=== PATIENT | male | born 1990 | race Caucasian/White ===

== ENCOUNTER 2021-08-05 12:11 | Outpatient (REF) | payer MEDICAID, SELFPAY ==
--- NOTE | ~2021-08-05 | XR_ITS ---
EXAMINATION: XR SHOULDER, LEFT CLINICAL INFORMATION: Pain COMPARISON: Previous x-ray from 2012 TECHNIQUE: 3 views of the left shoulder. FINDINGS: Bone alignment is normal. No fracture or dislocation is seen. There is a small sclerotic density in the left humeral head that is stable and probably represents a benign bone island. The joint spaces are normal. Soft tissues are normal. XR/XR shoulder LT min 2V IMPRESSION: Unremarkable exam.
== END 2021-08-05 12:12 | disposition home or self-care (01) ==
LOC: HO.HOSX 12:11
PROVIDERS: Visit Provider Orthopaedic Surgery
DX: M25.512 Pain in left shoulder (principal)
CPT/HCPCS: 73030

== ENCOUNTER 2021-08-21 12:45 | Outpatient (REF) | payer OTHER, MEDICAID, SELFPAY ==
--- NOTE | ~2021-08-21 | MR_ITS ---
EXAMINATION: MR SHOULDER WITH CONTRAST, LEFT CLINICAL INFORMATION: Left shoulder pain. Multiple dislocations. Injury on 07/26/2021. Surgery 14 years ago. Instability. COMPARISON: Left shoulder fluoroscopic arthrography done earlier the same day. Left shoulder radiographs dated 08/05/2021. Left shoulder MRI dated 11/10/2011. TECHNIQUE: MRI of the shoulder was performed following the intra-articular administration of a dilute gadolinium-containing solution (arthrogram) on a high-field scanner. FINDINGS: ROTATOR CUFF: Mild supraspinatus and infraspinatus tendinosis. No measurable rotator cuff tendon tear. Mild degenerative cystic change in the posterior aspect of the greater tuberosity. No muscle atrophy or fatty infiltration. BICEPS: Normal CORACOACROMIAL ARCH: The undersurface of the acromion is flat with no subacromial spur. The acromioclavicular joint is normal. LABRUM/CAPSULE: Postsurgical change consistent with prior labral repair. Contrast extending to the base of the anterior and anterior inferior labrum, consistent with nondisplaced labral tearing. Findings are slightly increased in prominence when compared to the MRI dated 11/10/2011. Intact inferior joint capsule. GLENOHUMERAL JOINT/MARROW: Glenohumeral articular cartilage thinning and signal heterogeneity with tiny marginal osteophytes. MR/MR shoulder LT w con IMPRESSION: 1. Contrast extending to the base of the anterior and anteroinferior labrum consistent with nondisplaced labral tearing, slightly increased in prominence when compared to the prior MRI. Post surgical changes consistent prior labral repair. 2. Mild supraspinatus and infraspinatus tendinosis without a measurable tendon tear. 3. Mild glenohumeral arthrosis, slightly progressed.
--- NOTE | ~2021-08-21 | FL_ITS ---
EXAMINATION: XR ARTHROGRAM SHOULDER, LEFT CLINICAL INFORMATION: Left shoulder pain. COMPARISON: Left shoulder 08/05/2021. TECHNIQUE: Following explaining fluoroscopy-guided left shoulder injection for MRI procedure, benefits and risks, a written consent was obtained. Patient was placed supine on fluoroscopy table and anterior aspect of the shoulder was cleaned and draped in usual sterile manner. 1% lidocaine was injected at puncture site. A 22-gauge spinal needle was then inserted from the skin into the shoulder joint space. 2 mL of non-iodinated contrast was injected and single image was obtained. Subsequently 0.1 mL of gadolinium diluted with 10 mL of saline and 1% lidocaine combination was injected and needle withdrawn. Complete hemostasis achieved at puncture site. Simple Band-Aid applied postprocedure. Patient tolerated procedure extremely well. FINDINGS: Single image obtained through the left shoulder reveals contrast opacifying the left shoulder joint space. FLUOROSCOPY TIME: 1.5 minutes. DOSE AREA PRODUCT: 5.123 uGy-m2 (microgray-meter squared) FL/FL arthrogram shoulder LT IMPRESSION: Successful fluoroscopy-guided left shoulder injection of diluted gadolinium. Patient was sent to MRI for further imaging.
== END 2021-08-21 12:46 | disposition home or self-care (01) ==
LOC: HO.XRAY 12:45
PROVIDERS: Visit Provider Physician Assistant
DX: M25.312 Other instability, left shoulder (principal)
CPT/HCPCS: 23350; 73040; 73222; A9585

== ENCOUNTER 2021-10-02 06:53 | Day surgery (SDC) | payer OTHER, SELFPAY ==
[2021-09-26 09:45] VITALS: BMI 25.4
[2021-10-02] VITALS (10 sets, daily range): BP systolic 107–133; BP diastolic 60–77; PULSE 62–89; RESP 15–18; TEMP 36.1–36.3; O2SAT 93–98
--- NOTE | 2021-10-02 07:38 | MHC.SHP ---
Pre-Procedural Eval Section A Date of Service: 10/02/21 The patient is an INPATIENT: No Changes since office visit: Yes Patient answered all questions; No Cold of Flu in the past 2 weeks, No New Medical Problems and No Changes in Medication The History & Physical has been completed within 30 days and I have reviewed it.: Yes Section B Chief Complaint: shoulder instability Allergies: Allergies Allergy/AdvReac Type Severity Reaction Status Date / Time No Known Allergies Allergy Verified 10/02/21 07:06 [No Known Allergies*] Plan I have reviewed the history and physical and performed a pertinent physical examination on my patient. No changes have occurred unless specified.
[2021-10-02] MEDS: Lactated Ringers 1,000 ML 50 ML IVCONT (07:56)
--- NOTE | 2021-10-02 07:59 | HO.ANESPROP2 ---
HPI - Anesthesia Eval Consult details Narrative: 31 M for left shoulder arthroscopy PMFSH Active Problems Active Problems: All Active Problems (Updated 09/26/21 @ 09:45 by Seda Laurent RN) Instability of left shoulder joint (Acute) Past Medical History Medical History Acute anxiety Bankart lesion of left shoulder Habitual snoring Large tonsils Mild heartburn Family History Family history of problems with anesthesia: No Surgical History Surgical History H/O arthroscopy of shoulder Hx of shoulder surgery History of Problems with Anesthesia: No Social History Social History (Updated 08/05/21 @ 13:29 by DOMINIC Robert) Are you a primary home care manager rn to a significant other at home: No Do you presently have visiting nurse or other home services: No Tobacco use type: Smokeless Tobacco Current occupational status: employed Current occupation: [employer] service, rt hand Meds Allergies Allergy/AdvReac Type Severity Reaction Status Date / Time No Known Allergies Allergy Verified 10/02/21 07:06 [No Known Allergies*] Active Medications: Current Medications Lactated Ringer's (Lr) 1,000 mls @ 50 mls/hr IVCONT .Q20H SILVIANO Last Admin: 10/02/21 07:56 Dose: 50 mls/hr Exam Exam Date and Time: October 02, 2021 0759 Height,Weight and Vital Signs: Height 5 ft 10 in Weight 80.286 kg Last Vital Signs Temp 97.0 F 10/02/21 07:22 Pulse 71 10/02/21 07:22 Resp 15 10/02/21 07:22 BP 133/77 10/02/21 07:22 Pulse Ox 97 10/02/21 07:22 O2 Del Method 10/02/21 07:22 Airway Mallampati Class: III TM Dist: >3cm Neck ROM: Full Loose/Missing/Broken Teeth: Yes Heart: S1,S2 Lungs: b/l breath sounds Assessment and Plan Assessment Anesthesia Assessment: Anesthesia Plan Discussed and Chart Reviewed Final Anesthetic Review Family History of Problems with Anesthesia: No History of Problems with Anesthesia: No NPO: Yes ASA Class: II Final Preanesthetic Review: Meds/Allgs Chart Reviewed, Consent Obtained/Reviewed and Anes Risks/Benef Reviewed Patient Risk: Intermediate Procedure Risk: Intermediate Anesthetic Plan Anesthetic Plan: GA and Regional Block Disposition: Standard PACU
--- NOTE | 2021-10-02 10:41 | P.BOP_ITS ---
Brief Operative Note Date of Service: 10/02/21 Pre-op diagnosis: Left shoulder instability Post-op diagnosis: other (Left shoulder instability and labral tear) Procedure: Capsular plication with labral repair, left shoulder Implants: Guillen and Nephew 2.7 Micro-Raptor anchors x 3 Surgeon: Dave Amor MD Anesthesia: GETA and regional Was an School Psychologist Assistant used for this Procedure?: Yes School Psychologist Assistant: Viviana Rodriguez Estimated blood loss (mL): 10 IV fluids (mL): 800 Pathology: none sent Condition: stable Disposition: PACU
--- NOTE | 2021-10-04 16:51 | W.PM.OPN ---
Operative Note Operative Note Date of Service: 10/02/21 Narrative: Date of Service: 10/02/21 Pre-op diagnosis: Left shoulder instability Post-op diagnosis: other (Left shoulder instability and labral tear) Procedure: Capsular plication with labral repair, left shoulder Implants: [employer] Nephew 2.7 Micro-Raptor anchors x 3 Surgeon: Dave Amor MD Anesthesia: GETA and regional Was an Animal Cytologist used for this Procedure?: Yes Animal Cytologist: Viviana Rodriguez Estimated blood loss (mL): 10 IV fluids (mL): 800 Pathology: none sent Condition: stable Disposition: PACU Procedure in detail: Patient was brought to the operating room and placed the the beach chair position. All bony prominences were well padded and the limb was prepped and draped in standard sterile fashion. A time out was called to identify proper site, proper procedure and proper surgeon. IV antibiotics per weight were administered. I began by making a posterolateral stab incision with a 15 blade. A blunt trochar was placed into the glenohumeral joint and I insufflated the joint with saline and a 30 degree arthroscope was placed. I established an outside- in anterior portal just distal to the biceps tendon. I then began my inspection of the glenohumeral joint. There was min G 1 cartilage changes of the shonna-inferior glenoid. The subscapularis was intact and there was no under-surface RTC tearing. There was mild fraying of the biceps with associated mild degenerative tearing of the labrum superiorly. There was a prior labrectomy shonna-inferiorly with the labrum detached from the glenoid and a postive drive through sign. I debrided the labrum and removed the prior suture. I then debrided the anterior glenoid neck and passed a suture through the shonna-inferior capsule and labrum aand the 7 o'clock position. I placed a 2.7 mm micro-raptor at the anterior glenoid rim and tightened the shonna-inferior capsule and labrum creating a nice bumper effect. I then repeated this process at 8 and 9 o'clock positions. I was satisfied with the plication and the labral repair. There was no longer a + drive though. I then removed all instrumentation and took my final pictures. Portals were closed with nylon. Patient was placed in an abduction sling, extubated and brought to the recovery room in stable condition. There were no known complications.
== END 2021-10-02 13:10 | disposition home or self-care (01) ==
PROVIDERS: Visit Provider Orthopaedic Surgery
PROC: (CPT 29805; principal; 2021-10-02 08:40)
DX: M25.312 Other instability, left shoulder (principal); F41.9 Anxiety disorder, unspecified; F43.0 Acute stress reaction; R06.83 Snoring; J35.1 Hypertrophy of tonsils; R12 Heartburn; Z98.890 Other specified postprocedural states; Z72.0 Tobacco use
CPT/HCPCS: 29806; J0131; J0171; J0690; J1100; J1170; J2250; J2405; J2795; J3010

== ENCOUNTER → 2022-02-17 11:15 | Outpatient (BNVA) | payer OTHER, SELFPAY | PROVIDERS: Visit Provider Physician Assistant | DX: M25.312 Other instability, left shoulder (principal) | CPT/HCPCS: 99212 ==

== ENCOUNTER 2022-02-25 14:00 | Outpatient (RCR) | payer OTHER, SELFPAY ==
--- NOTE | 2021-10-09 15:43 | MHC.PT.EP ---
[facility] [place] Office [place] Office [place] Office [address] Keyur Etienne [address] [phone] F: [phone] F: [phone] F: [phone] F: [phone] Physical Therapy Plan of Care Date of Evaluation: Date of Surgery: 10/02/21 Diagnosis: L SHLDER PLICATION AND LABRAL REPAIR Assessment: Pt IS 31 YO M REFERRED TO PT S/P L SHLDER PLICATION AND LABRUM REPAIR. Pt HAS HAD LABRAL REPAIR L SHLDER AND BICEPS REPAIR ON R IN PAST. PRESENTS WITHOUT SLING (ED TO INCREASE USE FOR SUPPORT) DECREASED L SHLDER ROM AND STRENGTH POST OP. Pt WITHOUT SIGNIFICANT PAIN. HAS BEEN EDUCATED RE INCREASED USE OF SLING, SUPPORTIVE POSTURE IN SIT (PILLOW USE WITH NEUTRAL SHLDER..AVOID IR) AND ICE USE (ED RE HOME ICE PACK). Pt IS OOW AT THIS TIME (WAS WORKING IN [employer] PRIOR TO SURGERY, BUT IS NOT PLANNING ON RETURNING TO THAT TYPE OF WORK). Pt LIVES WITH HIS PARENTS. SHOULD BENEFIT FROM PT TO HELP INCREASE L SHLDR ROM, STRENGTH AND FUNCTION PER HEALING PROCESS/PROTOCOL Frequency and Duration: The patient will be seen 1 X NEXT WEEK, THEN 2X/WK X 12 WKS Short Term Goals: 1. INCREASED POSTURE AWARENESS AND AWARENESS SHOULDER CARE (USE OF SLING TILL WEEK 4, ICE) 2. L SHLDER FLEX 145 BY WK 4, ER TO 30 DEGREES BY WEEK 4 3. I BEAU PROGRAM FOR L SHLDER Fpc Goals: 1. I HEP WITH DC EX PLAN 2. INCREASED FUNCTIONAL USE L UE WITH PAIN NO GREATER THAN 2/10 3. FULL L SHLDER ROM Treatment Plan: Modalities to reduce pain, spasms and effusion. Manual therapy to restore motion and function. Therapeutic exercise to improve strength and flexibility. Neuromuscular re-education for posture and balance. Therapeutic activities to return to functional activities of daily living. Electronically signed by: HARITHA CASTORENA PT Please sign and return to therapist. Thank you for your referral.
--- NOTE | 2021-11-01 15:18 | MHC.PT.OD ---
[facility] [place] Office [place] Office [place] Office [address] Keyur Etienne [address] [phone] F: [phone] F: [phone] F: [phone] F: [phone] Physical Therapy Daily Note Diagnosis: L SHLDER PLICATION AND LABRAL REPAIR Date of Surgery: 10/02/21 Date of Evaluation: 10/09/21 Date of Treatment: 11/01/21 Treatments to Date: 4 Cancellations to Date: No Shows to Date: Authorized Visits: Insurance End Date: Precautions/ Contraindications:SEE PROTOCOL NO ACTIVE ER EXTENSION OR ABDUCTION FLEXION PROM TO 90 AT WK 2 Sling with immobilizer for 4 weeks Sleep in immobilizer for 4 weeks SEE PROTOCOL Subjective: Pt is 4 weeks, 2 days post operative today, expresses good compliance with AAROM and isometrics. States has no pain. Pain Score and Location: 3 L SHLDER Objective Flowsheet: Tests & Measures Operative Note Signed Patient: Tyrel DaileyMR#: [id number] : 1990Acct:[id number] Age/Sex: 31 / M Loc: .[facility] Attending Dr: Dave Amor MD cc: Dave Amor MD; Physician,Unknown ~ Operative Note Operative Note Date of Service: 10/02/21 Narrative: Date of Service: 10/02/21 Pre-op diagnosis: Left shoulder instability Post-op diagnosis: other (Left shoulder instability and labral tear) Procedure: Capsular plication with labral repair, left shoulder Implants: [employer]hew 2.7 Micro-Raptor anchors x 3 Surgeon: Dave Amor MD Anesthesia: GETA and regional Was an Millinery Designer used for this Procedure?: Yes Millinery Designer: Viviana Rodriguez Estimated blood loss (mL): 10 IV fluids (mL): 800 Pathology: none sent Condition: stable Disposition: PACU Procedure in detail: Patient was brought to the operating room and placed the the beach chair position. All bony prominences were well padded and the limb was prepped and draped in standard sterile fashion. A time out was called to identify proper site, proper procedure and proper surgeon. IV antibiotics per weight were administered. I began by making a posterolateral stab incision with a 15 blade. A blunt trochar was placed into the glenohumeral joint and I insufflated the joint with saline and a 30 degree arthroscope was placed. I established an outside- in anterior portal just distal to the biceps tendon. I then began my inspection of the glenohumeral joint. There was min G 1 cartilage changes of the shonna-inferior glenoid. The subscapularis was intact and there was no under-surface RTC tearing. There was mild fraying of the biceps with associated mild degenerative tearing of the labrum superiorly. There was a prior labrectomy shonna-inferiorly with the labrum detached from the glenoid and a positive drive through sign. I debrided the labrum and removed the prior suture. I then debrided the anterior glenoid neck and passed a suture through the shonna-inferior capsule and labrum and the 7 o'clock position. I placed a 2.7 mm micro-raptor at the anterior glenoid rim and tightened the shonna-inferior capsule and labrum creating a nice bumper effect. I then repeated this process at 8 and 9 o'clock positions. I was satisfied with the plication and the labral repair. There was no longer a + drive though. I then removed all instrumentation and took my final pictures. Portals were closed with nylon. Patient was placed in an abduction sling, extubated and brought to the recovery room in stable condition. There were no known complications. [facility] [address] [place] [address] [address] [place] [address] Office Visit Report Signed Patient: Tyrel Dailey#: [id number] : 1990Acct:[id number] Age/Sex: 31 / MADM/SER Date: 10/07/21 Loc: HO.HOSADM/SER Time:824 Attending Provider: Viviana Rodriguez PA-C cc: Viviana Rodriguez PA-C; Physician,Unknown ~ Intake Vital Signs 10/07/21 08:33 Height 5 ft 10 in Weight 178 lb BMI 25.5 Intake Visit Reasons: PO Lt Caps plic&labral rep 10/02/21 NE w/pt Intake Note: Tyrel is a 31 yr old male who presents today with aunt for a post operative capsular plication with labral repair, left shoulder 10/02/21. Patient reports he is doing well. He states he has not needed his pain medications. He has no concerns today. Allergies No Known Allergies [No Known Allergies*] Allergy (Verified 10/07/21 08:34 HPI PO Lt Caps plic&labral rep 10/02/21 NE w/pt HPI Details 31-year-old male presents in the office today 5 days status post left shoulder labral repair performed on 10/02/[address] Amor. He reports he is doing well. He states he has not needed his pain medication often. He confirms he has no concerns for today. He has been in the sling at all times. 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 No erythema, edema, or drainage. No signs of infection. NVI. Psych Mental Status: mental status grossly normal Assessment & Plan Assessment & Plan (1) Instability of left shoulder joint: Code(s): M25.312 - Other instability, left shoulder Plan Mr. Dailey is a 31-year-old male who presents in the office today status post left shoulder labral repair performed on 10/02/[address] Amor. He reports he is doing well. He states he has not needed his pain medication often. He confirms he has no concerns for today. Sutures were removed from the patient?s incision site and steri-stripes were applied while in office today. The patient will work with physical therapy for labral repair protocol. He will remain in a sling until 6 weeks post-op. Sutures were removed in the office today, with no signs of infection. Follow up will be in 4 weeks or sooner if needed. Patient Instructions: Scribed for iVviana Rodriguez PA-C by Oralia Mccullough medical donation professional, on 10/04/2021. I, Viviana Rodriguez PA-C, have personally reviewed and agreed with the information entered by the medical donation professional. Coding Level of Care Code Global (11010) Dictated By:Dave Amor MD Signed By:<Electronically signed by Dave Amor MD>10/04/21 165 Exercises INST IN/REV PENDULUMS A/P, LAT, CW/CCW, L ELBOW FLEX/EXT AROM, AAROM flexion with wand in supine, also reviewed with aide opposite side x 10R x 10 sec hold, AAROM ER with cane in scapular plane to 30 degrees (x 10R), sub-max isometric flex/ext/er/ir/add/abd x 3 sets 10 reps x 5 sec hold, prone shoulder ext for scap retraction x 3 sets 10R, standing wall ball unweighted ball x 30 sec up/down/circles/CCW. Reviewed HEP program and goals with patient. ASSESSMENT ANTERIOR INCISION TWO SMALL STERI-STRIPS OVER INCISION NO EVIDENCE OF DRAINAGE. POSTERIOR INCISION SCABBED OVER NECROTIC SCAB NO STERI-STRIPS. EDUCATED RE: CARE OF INCISIONS, AVOIDANCE OF REMOVING STERI-STRIPS AAROM/PROM L SHOULDER FLEXION TO 145 degrees supine. Education to progress reps of submax isometrics over time as tolerated. Avoidance of extreme end range extension, abd and ER movements . Encourage Modalities Assessment: 11/01/21 Pt is 4 weeks, 2 days post op, he has D/C sling on his own and has been noncompliant with wearing sling since eval on 10/09/21 despite education to follow. Pt is advancing well in AAROM/PROM per protocol. He has been initiated in submax isometrics/scapular stabiization tasks and has been advised to progress to 3 sets of 15 reps with tasks as tolerated. Pt to see Dr. Amor office on 11/04/21 at 9:30am for follow up. 10/29/21 Pt presents to office without use of sling despite reiteration to use use per protocol . Initiated sub-max isometrics with good tolerance. AAROM flexion 130 degrees. 10/22/21 PT PRESENTS TO PT OFFICE WITH NO IMMOBILIZER AND NO SLING ON- EXPRESSES PRN USE DURING DAY AND USE OF SLING AT NIGHT. PT EDUCATED RE: PROTOCOL PHASE AND NEED TO USE OF SLING AND IMMOBILZER AT ALL TIMES UNTIL NEXT FOLLOW UP WITH SURGEON ( appt set for 11/04/21) WITH THE EXCEPTION OF HYGIENE- EDUCATED NO ACTIVE ER NO ACTIVE ABDUCTION NO ACTIVE EXT, NO LIFTNG NO USE OF LEFT UE. PT IS TWO WEEKS 6 DAYS POST OP, PROM 90 DEGREES WITH GOOD TOLERANCE. WILL ADD SUBMAX ISOMETRICS NEXT SESSION PER PROTOCOL. PT DEFERRED NEED FOR ICE POST PROM THIS DATE. 10/09/21: Pt IS 31 YO M REFERRED TO PT S/P L SHLDER PLICATION AND LABRUM REPAIR. Pt HAS HAD LABRAL REPAIR L SHLDER AND BICEPS REPAIR ON R IN PAST. PRESENTS WITHOUT SLING (ED TO INCREASE USE FOR SUPPORT) DECREASED L SHLDER ROM AND STRENGTH POST OP. Pt WITHOUT SIGNIFICANT PAIN. HAS BEEN EDUCATED RE INCREASED USE OF SLING, SUPPORTIVE POSTURE IN SIT (PILLOW USE WITH NEUTRAL SHLDER..AVOID IR) AND ICE USE (ED RE HOME ICE PACK). Pt IS OOW AT THIS TIME (WAS WORKING IN [employer] PRIOR TO SURGERY, BUT IS NOT PLANNING ON RETURNING TO THAT TYPE OF WORK). Pt LIVES WITH HIS PARENTS. SHOULD BENEFIT FROM PT TO HELP INCREASE L SHLDR ROM, STRENGTH AND FUNCTION PER HEALING PROCESS/PROTOCOL PT Plan: PROM>AAROM>AROM, BEAU, SCAP WORK, MODALITIES/ST WORK PRN, PER PROTOCOL IN CHART Short Term Goals: 1. INCREASED POSTURE AWARENESS AND AWARENESS SHOULDER CARE (USE OF SLING TILL WEEK 4, ICE) 2. L SHLDER FLEX 145 BY WK 4, ER TO 30 DEGREES BY WEEK 4 3. I BEAU PROGRAM FOR L SHLDER Principal Quality Engineer Goals: 1. I HEP WITH DC EX PLAN 2. INCREASED FUNCTIONAL USE L UE WITH PAIN NO GREATER THAN 2/10 3. FULL L SHLDER ROM Electronically signed by: Gracie Avendaño PT, DPT
--- NOTE | 2021-12-18 13:44 | MHC.PT.OD ---
[facility] [place] [facility] [place] [facility] [place] [facility] [address] Keyur Etienne 140 [facility] [phone] F: [phone] F: [phone] F: [phone] F: [phone] Physical Therapy Daily Note Diagnosis: L SHLDER PLICATION AND LABRAL REPAIR Date of Surgery: 10/02/21 Date of Evaluation: 10/09/21 Date of Treatment: 12/06/21 Treatments to Date: 8 Cancellations to Date: No Shows to Date: Authorized Visits: Insurance End Date: Precautions/ Contraindications:SEE PROTOCOL NO ACTIVE ER EXTENSION OR ABDUCTION FLEXION PROM TO 90 AT WK 2 Sling with immobilizer for 4 weeks Sleep in immobilizer for 4 weeks SEE PROTOCOL Subjective: Pt is a 9 weeks 2 days (Controlled motion phase (weeks 9-16 see chart) post op, to see Dr. Amor week of 12/16/21. Pt expressing he feels he is doing well some tightness. Pain Score and Location: 3 L YIFAN Objective Flowsheet: Tests & Measures [address] [place] [address] Office Visit Report Signed Patient: Tyrel DaileyMR#: [id number] : 1990Acct:[id number] Age/Sex: 31 / MADM/SER Date: 11/04/21 Loc: HO.HOSADM/SER Time:931 Attending Provider: Viviana Rodriguez PA-C cc: Viviana Rodriguez PA-C; Physician,Unknown ~ Intake Vital Signs 11/04/21 09:39 Height 5 ft 10 in Weight 178 lb BMI 25.5 Intake Visit Reasons: PO Lt Caps plic&labral rep 10/02/21 NE Intake Note: Tyrel is a 31 yr old male who presents today with aunt for a post operative capsular plication with labral repair, left shoulder 10/02/21.?States he cont's to work with P.T to improve his ROM, over all he is doing well. Allergies No Known Allergies [No Known Allergies*] Allergy (Verified 11/04/21 09:44) HPI PO Lt Caps plic&labral rep 10/02/21 NE HPI Details 31-year-old male presents in the office today 1 month status post left shoulder capsular plication with labral repair, which was performed on 10/02/[address] Amor. The patient reports he continues to work with physical therapy to improve his ROM. He states overall he is doing well. 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, rt hand Review of Systems Const All systems reviewed & are unremarkable except as noted in HPI and below Physical Exam Vital Signs: BMI result Body Mass Index 25.5 Const General: cooperative and no acute distress Orientation/consciousness: patient oriented x3 Resp Effort & Inspection: normal respiratory effort and able to speak in complete sentences Cardio Rate: regular rate Peripheral pulses: Peripheral pulses 2+ throughout GI Palpation (GI): Soft to palpation Skin Lesions: no lesions Rashes: no rashes Neuro General: patient oriented x3 Extrem Other: Left shoulder: No erythema, edema, or drainage. No signs of infection. incision sites are well approximated and healing. ROM: FF 160, ABD 160, ER neutral, able to reach T12.NVI. Psych Mental Status: mental status grossly normal Assessment & Plan Assessment & Plan (1) Instability of left shoulder joint: Code(s): M25.312 - Other instability, left shoulder Plan Mr. Dailey is a 31-year-old male who presents in the office today 1 month status post left shoulder capsular plication with labral repair, which was performed on 10/02/[address] Amor. The patient reports he continues to work with physical therapy to improve his ROM. He states overall he is doing well. He may discontinue sling use on 11/13/2021. He will continue to work with physical therapy. The patient reports about one week ago he discontinued the use of the sling. I educated the patient about the importance and recommendation of not discontinuing sling use until 6 weeks. The patient states that ?He is being smart about it?. He states while he is out of the house he will wear the sling but when he is at home he will not wear it. I did recommend the to the patient to wear his sling and stated he may discontinue the use on 11/13/2021. Follow up will be in 6 weeks, or sooner if needed. Patient Instructions: Scribed for Viviana Rodriguez PA-C by Oralia Mccullough medical office administrator, on 11/04/2021. I, Viviana Rodriguez PA-C, have personally reviewed and agreed with the information entered by the medical office administrator. Coding Level of Care Code Global (91637) Diagnoses Instability of left shoulder joint M25.312 Documented By:Viviana Rodriguez11/04/21 0939 Signed By:<Electronically signed by Viviana Rodriguez>11/04/21 1016 Operative Note Signed Patient: Tryel Dailey#: [id number] : 1990Acct:[id number] Age/Sex: 31 / M Loc: .[facility] Attending Dr: Dave Amor MD cc: Dave Amor MD; Physician,Unknown ~ Operative Note Operative Note Date of Service: 10/02/21 Narrative: Date of Service: 10/02/21 Pre-op diagnosis: Left shoulder instability Post-op diagnosis: other (Left shoulder instability and labral tear) Procedure: Capsular plication with labral repair, left shoulder Implants: [employer] 2.7 Micro-Raptor anchors x 3 Surgeon: Dave Amor MD Anesthesia: GETA and regional Was an Senior Executive Assistant used for this Procedure?: Yes Senior Executive Assistant: Viviana Rodriguez Estimated blood loss (mL): 10 IV fluids (mL): 800 Pathology: none sent Condition: stable Disposition: PACU Procedure in detail: Patient was brought to the operating room and placed the the beach chair position. All bony prominences were well padded and the limb was prepped and draped in standard sterile fashion. A time out was called to identify proper site, proper procedure and proper surgeon. IV antibiotics per weight were administered. I began by making a posterolateral stab incision with a 15 blade. A blunt trochar was placed into the glenohumeral joint and I insufflated the joint with saline and a 30 degree arthroscope was placed. I established an outside- in anterior portal just distal to the biceps tendon. I then began my inspection of the glenohumeral joint. There was min G 1 cartilage changes of the shonna-inferior glenoid. The subscapularis was intact and there was no under-surface RTC tearing. There was mild fraying of the biceps with associated mild degenerative tearing of the labrum superiorly. There was a prior labrectomy shonna-inferiorly with the labrum detached from the glenoid and a positive drive through sign. I debrided the labrum and removed the prior suture. I then debrided the anterior glenoid neck and passed a suture through the shonna-inferior capsule and labrum and the 7 o'clock position. I placed a 2.7 mm micro-raptor at the anterior glenoid rim and tightened the shonna-inferior capsule and labrum creating a nice bumper effect. I then repeated this process at 8 and 9 o'clock positions. I was satisfied with the plication and the labral repair. There was no longer a + drive though. I then removed all instrumentation and took my final pictures. Portals were closed with nylon. Patient was placed in an abduction sling, extubated and brought to the recovery room in stable condition. There were no known complications. [facility] [address] [place] [address] Drive [address] [place] [address] Office Visit Report Signed Patient: Tyrel Dailey#: [id number] : 1990Acct:[id number] Age/Sex: 31 / MADM/SER Date: 10/07/21 Loc: HO.HOSADM/SER Time:824 Attending Provider: Viviana Rodriguez PA-C cc: Viviana Rodriguez PA-C; Physician,Unknown ~ Intake Vital Signs 10/07/21 08:33 Height 5 ft 10 in Weight 178 lb BMI 25.5 Intake Visit Reasons: PO Lt Caps plic&labral rep 10/02/21 NE w/pt Intake Note: Tyrel is a 31 yr old male who presents today with aunt for a post operative capsular plication with labral repair, left shoulder 10/02/21. Patient reports he is doing well. He states he has not needed his pain medications. He has no concerns today. Allergies No Known Allergies [No Known Allergies*] Allergy (Verified 10/07/21 08:34 HPI PO Lt Caps plic&labral rep 10/02/21 NE w/pt HPI Details 31-year-old male presents in the office today 5 days status post left shoulder labral repair performed on 10/02/[address] Amor. He reports he is doing well. He states he has not needed his pain medication often. He confirms he has no concerns for today. He has been in the sling at all times. 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 No erythema, edema, or drainage. No signs of infection. NVI. Psych Mental Status: mental status grossly normal Assessment & Plan Assessment & Plan (1) Instability of left shoulder joint: Code(s): M25.312 - Other instability, left shoulder Plan Mr. Dailey is a 31-year-old male who presents in the office today status post left shoulder labral repair performed on 10/02/[address] Amor. He reports he is doing well. He states he has not needed his pain medication often. He confirms he has no concerns for today. Sutures were removed from the patient?s incision site and steri-stripes were applied while in office today. The patient will work with physical therapy for labral repair protocol. He will remain in a sling until 6 weeks post-op. Sutures were removed in the office today, with no signs of infection. Follow up will be in 4 weeks or sooner if needed. Patient Instructions: Scribed for Viviana Rodriguez PA-C by Oralia Mccullough medical office administrator, on 10/04/2021. I, Viviana Rodriguez PA-C, have personally reviewed and agreed with the information entered by the medical office administrator. Coding Level of Care Code Global (76994) Dictated By:Dave Amor MD Signed By:<Electronically signed by Dave Amor MD>10/04/21 1659 Exercises Seated [employer] bike for scapular stab warm-up painfree ROM pedaliing posteriorly AAROM flexion in supine x 10 sec hold x 10R (155), AAROM ER at 90 in 90 degree abd x 10 sec hold, quadriped UE alternating touches to opposite shoulder x 3 sets 8R, quadriped lower trap raises x 2 sets 10R, wall ball stabilization weighted ball 500gram, tubing ER with RTB x 2 sets 10R, SL ER Issued updated HEP sheets: wall ball, quadriped UE altnernating shoulder taps, horizontal abd, and lower trap raises x 2 sets 10R, resisted ER with RTB and wall push up with a plus. Pt defer ice to home. ASSESSMENT ANTERIOR INCISION TWO SMALL STERI-STRIPS OVER INCISION NO EVIDENCE OF DRAINAGE. POSTERIOR INCISION SCABBED OVER NECROTIC SCAB NO STERI-STRIPS. EDUCATED RE: CARE OF INCISIONS, AVOIDANCE OF REMOVING STERI-STRIPS SHOULDER FLEXION TO ~165 degrees, supine today 165 AAROM with cane, AAROM ER to 75 degrees Education to progress reps of submax isometrics over time as tolerated. Avoidance of extreme end range extension, abd and ER movements . Encourage Modalities Assessment: 12/06/21 Refer to chart for hard copy of shoulder protocol. Pt 9 weeks 2 days post op. Pt progressing well challenged with ER. 11/28/21 Pt doing well but expresses increased soreness after having to lift/fill 40# wood pellet bag into stove when he was home alone. Pt to see Dr. Amor on 12/16/21 at 11:00pm for follow up. 11/22/21 Pt has demonstrated improvement in AAROM in recent days. Pt challenged with attempt of quadriped resting position. Initiated prone tricep with ext to neutral with no added weight with fatigue verbalized. Pt would benefit from continued skilled PT services at a frequency of 2x/week x 4 weeks to address impairments, implement HEP, and restore functional mobility to resume PLOF. Pt is currently not working (was working in [employer] type of job prior to surgery). Pt to see Dr. Amor surgeon for a follow up early December. 11/14/21 AAROM flexion 161 deegrees today. Pt expressing he continues to use sling at night has been encouraged to D/C at night per protocol. 11/12/21 Pt presents to office without sling, he is 5 weeks 6 days post op. He expresses overall achyness with rainy weather. Pt educated he is officially cleared o D/C sling on 11/13/21. Clarification received from orthopedic office via fax on 11/05/21: On 11/05/21 13:52 Michael Rader Wrote to Christine Marin, they can continue to follow the anterior capsule plication protocol for the left shoulder PHASE II Controlled motion phase (weeks 7-16) Phase III Advanced strengthening phase (weeks 16-23) . Pt expresses follow up with ortho early December. 11/05/21 Pt presents to office today for his therapy appt without use of sling despite education yesterday provided by PINEDA at follow-up to use until 11/13/21. Therapist phoned the office and spoke with Diamante in orthopedics today around 1:30pm requesting specific clarification/orders moving forward to confirm against use of Advanced CEU protocol Labral repair. Pt AAROM flexion 155 degrees today. Pt expressing no pain but does express fatigue with scapular stabilization tasks. He has been expressing some tightness/discomfort along medial scapular area therfore we initiated trial IASTM to posterior medial scapula. 11/01/21 Pt is 4 weeks, 2 days post op, he has D/C sling on his own and has been noncompliant with wearing sling since eval on 10/09/21 despite education to follow. Pt is advancing well in AAROM/PROM per protocol. He has been initiated in submax isometrics/scapular stabiization tasks and has been advised to progress to 3 sets of 15 reps with tasks as tolerated. Pt to see Dr. Amor office on 11/04/21 at 9:30am for follow up. 10/29/21 Pt presents to office without use of sling despite reiteration to use use per protocol . Initiated sub-max isometrics with good tolerance. AAROM flexion 130 degrees. 10/22/21 PT PRESENTS TO PT OFFICE WITH NO IMMOBILIZER AND NO SLING ON- EXPRESSES PRN USE DURING DAY AND USE OF SLING AT NIGHT. PT EDUCATED RE: PROTOCOL PHASE AND NEED TO USE OF SLING AND IMMOBILZER AT ALL TIMES UNTIL NEXT FOLLOW UP WITH SURGEON ( appt set for 11/04/21) WITH THE EXCEPTION OF HYGIENE- EDUCATED NO ACTIVE ER NO ACTIVE ABDUCTION NO ACTIVE EXT, NO LIFTNG NO USE OF LEFT UE. PT IS TWO WEEKS 6 DAYS POST OP, PROM 90 DEGREES WITH GOOD TOLERANCE. WILL ADD SUBMAX ISOMETRICS NEXT SESSION PER PROTOCOL. PT DEFERRED NEED FOR ICE POST PROM THIS DATE. 10/09/21: Pt IS 31 YO M REFERRED TO PT S/P L SHLDER PLICATION AND LABRUM REPAIR. Pt HAS HAD LABRAL REPAIR L SHLDER AND BICEPS REPAIR ON R IN PAST. PRESENTS WITHOUT SLING (ED TO INCREASE USE FOR SUPPORT) DECREASED L SHLDER ROM AND STRENGTH POST OP. Pt WITHOUT SIGNIFICANT PAIN. HAS BEEN EDUCATED RE INCREASED USE OF SLING, SUPPORTIVE POSTURE IN SIT (PILLOW USE WITH NEUTRAL SHLDER..AVOID IR) AND ICE USE (ED RE HOME ICE PACK). Pt IS OOW AT THIS TIME (WAS WORKING IN locr PRIOR TO SURGERY, BUT IS NOT PLANNING ON RETURNING TO THAT TYPE OF WORK). Pt LIVES WITH HIS PARENTS. SHOULD BENEFIT FROM PT TO HELP INCREASE L SHLDR ROM, STRENGTH AND FUNCTION PER HEALING PROCESS/PROTOCOL PT Plan: PROM>AAROM>AROM, BEAU, SCAP WORK, MODALITIES/ST WORK PRN, PER PROTOCOL IN CHART Short Term Goals: 1. INCREASED POSTURE AWARENESS AND AWARENESS SHOULDER CARE (USE OF SLING TILL WEEK 4, ICE) 2. L SHLDER FLEX 145 BY WK 4, ER TO 30 DEGREES BY WEEK 4 3. I BEAU PROGRAM FOR L SHLDER Fpc Goals: 1. I HEP WITH DC EX PLAN 2. INCREASED FUNCTIONAL USE L UE WITH PAIN NO GREATER THAN 2/10 3. FULL L SHLDER ROM Electronically signed by: Gracie Avendaño, PT, DPT
== END 2022-04-03 08:20 ==
LOC: HO.PTWFD 14:00
PROVIDERS: Visit Provider Physician Assistant
DX: M25.312 Other instability, left shoulder (principal)
CPT/HCPCS: 97110; 97140; 97150; 97162; 97535

== ENCOUNTER → 2022-04-21 11:26 | Outpatient (BNVA) | payer OTHER, SELFPAY | PROVIDERS: Visit Provider Orthopaedic Surgery | DX: M25.312 Other instability, left shoulder (principal) | CPT/HCPCS: 99212 ==